=== PATIENT | female | born 1930 | race Caucasian/White ===

== ENCOUNTER → 2016-08-15 | Outpatient (CLI) | payer MEDICARE, BC ==
[~2016-08-15] MED LIST: ALLOPURINOL300 MG PO; CARDIZEM CD120 MG PO; FERROUS SU325 MG/TAB PO; FISH OIL CONC1000 MG PO; FOLIC ACID PO; HCTZ PO; LASIX 20MG TABL20 MG PO; NORCO 325 MG-51 TAB PO; VITAMIN C500 MG PO
== END ==
LOC: MC.RAD 10:18
DX: Z12.31 Encounter for screening mammogram for malignant neoplasm of breast (principal)

== ENCOUNTER 2016-11-24 09:45 | Outpatient (RCR) | payer MEDICARE, BC | END 2016-11-27 13:49 | disposition home or self-care (01) | LOC: MKS.ESL.PT 09:45 | DX: M54.5 Low back pain (principal); M25.552 Pain in left hip | CPT/HCPCS: G8990-GP; G8991-GP; G8992-GP ==

== ENCOUNTER → 2017-08-27 | Outpatient (CLI) | payer MEDICARE, BC | LOC: MC.RAD 08-14 09:40 | DX: Z12.31 Encounter for screening mammogram for malignant neoplasm of breast (principal) ==

== ENCOUNTER 2017-09-28 21:39 | Emergency (ER) | payer MEDICARE, BC ==
[~2017-09-28] VITALS: Ht 154.9 cm; Wt 78.2 kg
[2017-09-28 21:56] VITALS: TEMP 97.4
[2017-09-28] MEDS ORDERED: ZYLOPRIM 300MG300 MG PO (22:04)
[2017-09-28] MEDS ORDERED: TOPROL XL 50MG50 MG PO (22:05)
[2017-09-28] MEDS ORDERED: KLOR-CON M2020 MEQ PO (22:06)
[2017-09-28 22:10] LABS: BASO % 0.2 % (0.0-2.0); EOS # 0.2 (0.0-0.7); EOS % 2.5 % (0-4.0); GRAN # 3.5 (1.4-6.5); GRAN % 53.3 % (42.2-75.2); LYMPH # 2.3 (1.2-3.4); MEAN CELL VOLUME 93 fl (80.0-100.0); MEAN CORPUSCULAR HGB CONC 33 g/dl (33.0-37.0); MEAN PLATELET VOLUME 10.2 fl (7.4-10.4); MONO # 0.6 (0.1-0.6); MONO % 8.5 % (1.7-9.3); PLATELET COUNT 201 K/mm3 (130-400); RED BLOOD COUNT 3.87 M/mm3 (4.10-5.30)
[2017-09-28 22:12] LABS: HEMATOCRIT 36.1 % (37.0-47.0); HEMOGLOBIN 11.9 g/dl (12.5-16.0); MEAN CORPUSCULAR HEMOGLOBIN 31 pg (27.0-31.0)
[2017-09-28 22:16] LABS: PROTHROMBIN TIME 11.6 SECONDS (9.7-12.8)
[2017-09-28 22:18] LABS: PARTIAL THROMBOPLASTIN TIME 31.9 SECONDS (26.0-37.0)
[2017-09-28 22:20] LABS: ALANINE AMINOTRANSFERASE 27 U/L (9-52); ALBUMIN 3.8 gm/dL (3.5-5.0); ALKALINE PHOSPHATASE 94 U/L (50-136); ANION GAP 8 mmol/L (7-16); AST,SGOT 24 U/L (15-37); BILIRUBIN,TOTAL 0.6 mg/dL (0.0-1.0); BLOOD UREA NITROGEN 20 mg/dL (7-17); CALCIUM 9.2 mg/dL (8.4-10.2); CARBON DIOXIDE 31 mmol/L (22-30); CHLORIDE 97 mmol/L (98-107); CREATININE, serum 1.11 mg/dL (0.52-1.25); GLUCOSE 94 mg/dL (74-106); POTASSIUM 3.3 mmol/L (3.4-5.0); SODIUM 136 mmol/L (137-145); TOTAL PROTEIN 6.8 gm/dL (6.4-8.2)
[2017-09-28 22:35] LABS: TROPONIN-I < 0.012 ng/mL (0.000-0.034)
[2017-09-28 23:55] VITALS: BP 168/73; PULSE 66
== END 2017-09-28 23:55 | disposition home or self-care (01) ==
LOC: COL.ER 21:39
PROVIDERS: Family Medicine
DX: R07.89 Other chest pain (principal); Z95.0 Presence of cardiac pacemaker; I10 Essential (primary) hypertension

== ENCOUNTER → 2018-11-29 | Outpatient (CLI) | payer MEDICARE, BC ==
[~2018-11-29] MED LIST changes: +KLOR-CON M2020 MEQ PO; +TOPROL XL 50MG50 MG PO; +ZYLOPRIM 300MG300 MG PO
== END ==
LOC: MC.RAD 14:02
DX: Z12.31 Encounter for screening mammogram for malignant neoplasm of breast (principal)

== ENCOUNTER 2020-03-19 20:46 | Emergency (ER) | payer MEDICARE, BC ==
[~2020-03-19] VITALS: Ht 154.9 cm; Wt 76.4 kg
[2020-03-19 21:55] VITALS: BP 148/64; PULSE 80; TEMP 97.4
== END 2020-03-19 22:00 | disposition home or self-care (01) ==
LOC: COL.ER 20:46
DX: S61.431A Puncture wound without foreign body of right hand, initial encounter (principal); Z23 Encounter for immunization; W45.0XXA Nail entering through skin, initial encounter